=== PATIENT | female | born 1965 | race Two or more races ===

== ENCOUNTER 2018-03-07 08:26 | Emergency (ER) | payer OTHER ==
[2018-03-07 08:37] VITALS: BMI 28.9
--- NOTE | 2018-03-07 09:28 | PDOC ---
Attending Attestation - Resident Resident Name: Corey Deckery - ED Attending Attestation I have performed the following: I have examined & evaluated the patient, The case was reviewed & discussed with the resident, I agree w/resident's findings & plan, Exceptions are as noted <Noa Bishop - Last Filed: 03/07/18 13:24> - HPI HPI: 03/07/18 09:29 The patient is a 52 year old female, with a significant past medical history of gallstones(s/p cholecystectomy on 08/16/16), who presents to the emergency department with abdominal pain, nausea, vomiting, and constipation for approximately 2 days. The patient reports nausea and vomiting since Sunday, nonbloody and nonbilious. She reports associated abdominal pain and constipation , but denies any diarrhea, melena, or hematochezia. She endorses decreased appetite and chills, but denies any fever . She denies any chest pain or shortness of breath. She denies any dysuria, hematuria, frequency, or urgency. She denies any recent travel or sick contacts. The patient reports she was evaluated at [facility] 2 days ago, where she had a CT Abdomen and Pelvis, which revealed an enteritis. She denies any history of vertigo. Allergies: NKDA Past Surgical History: Hysterectomy(for menorrhagia), (x4), Cholecystectomy. Social History: Non smoker. No ETOH or recreational drug use. - Physicial Exam PE: 03/07/18 09:30 GENERAL: Awake, alert, and fully oriented, in no acute distress HEAD: No signs of trauma EYES: PERRLA, EOMI, sclera anicteric, conjunctiva clear ENT: +Dry mucosa. Auricles normal inspection, hearing grossly normal, nares patent. NECK: Normal ROM, supple, no lymphadenopathy, JVD, or masses LUNGS: Breath sounds equal, clear to auscultation bilaterally. No wheezes, and no crackles HEART: Regular rate and rhythm, normal S1 and S2, no murmurs, rubs or gallops ABDOMEN: +Non specific abdominal tenderness to palpation. Soft, normoactive bowel sounds. No guarding, no rebound. No masses EXTREMITIES: Normal range of motion, no edema. No clubbing or cyanosis. No cords, erythema, or tenderness. DP/PT pulses 2+ and symmetric. NEUROLOGICAL: Moves all extremities. Normal speech, normal gait SKIN: Warm, Dry, normal turgor, no rashes or lesions noted. - Medical Decision Making 03/07/18 09:30 Documentation prepared by Aleah Clinton, acting as director medical affairs for Noa Bishop MD. <Aleah Clinton - Last Filed: 03/07/18 14:22> Heart Score/ECG Review #1 ECG reviewed & interpreted by me at: 13:25 General ECG Interpretation: Sinus Rhythm, Normal Rate (68), Normal Intervals, No acute ischemic changes <Noa Bishop - Last Filed: 03/07/18 13:24> ED Treatment Course - LABORATORY CBC & Chemistry Diagram: 03/07/18 09:40 03/07/18 09:40 - ADDITIONAL ORDERS Additional order review: Laboratory Results 03/07/18 03/07/18 10:15 09:40 Sodium 140 Potassium 4.0 Chloride 108 H Carbon Dioxide 27 Anion Gap 5 L BUN 14 Creatinine 0.6 Creat Clearance w eGFR > 60 Random Glucose 111 H Calcium 8.8 Total Bilirubin 0.8 AST 27 ALT 34 Alkaline Phosphatase 94 Total Protein 7.5 Albumin 3.8 Urine Color Yellow Urine Appearance Slcloudy Urine pH 6.0 Ur Specific [place] 1.017 Urine Protein Negative Urine Glucose (UA) Negative Urine Ketones Negative Urine Blood Negative Urine Nitrite Negative Urine Bilirubin Negative Urine Urobilinogen Negative Ur Leukocyte Esterase Negative Urine HCG, Qual Negative 03/07/18 09:40 RBC 5.09 MCV 86.4 MCHC 33.7 RDW 13.1 MPV 7.4 L Neutrophils % 66.2 Lymphocytes % 25.3 D Monocytes % 6.6 Eosinophils % 1.3 D Basophils % 0.6 - RADIOLOGY Radiology Studies Ordered: 03/07/18 14:20 EXAM: XR Abdomen INTERPRETED BY: Dr. Ireland REVIEWED BY: Dr. Bishop IMPRESSION: Imaging reveals retained contrast in the appendix and colon with no sign of a gross obstructive process, free aur or pneumatosis. The bones and soft tissues are intact. Correlation recommended. There is no evidence of a recent CT scan at [facility] to account for the contrast in the colon and appendix. - Medications Given in the ED: ED Medications Discontinued Medications Generic Name Dose Route Start Last Admin Trade Name Freq PRN Reason Stop Dose Admin Sodium Chloride 1,000 mls @ 1,000 mls/hr 03/07/18 09:31 03/07/18 09:57 Normal Saline - IV 03/07/18 10:30 1,000 mls/hr ASDIR STA Administration Metoclopramide HCl 10 mg 03/07/18 10:26 03/07/18 10:45 Reglan Injection - IVPUSH 03/07/18 10:27 10 mg ONCE ONE Administration <Aleah Clinton - Last Filed: 03/07/18 14:22>
[2018-03-07] MEDS ORDERED: SODIUM CHLORIDE 1,000 ML IV STA (09:31)
--- NOTE | 2018-03-07 09:52 | PDOC ---
History of Present Illness - General Chief Complaint: Pain Stated Complaint: NAUSEA/VOMITING History Source: Patient Exam Limitations: No Limitations - History of Present Illness Initial Comments: 03/07/18 09:51 52F with pmh of cholecystectomy and hysterectomy presents to the ER for nausea, vomiting and abdominal pain since Sunday. The pain is diffuse and 8/10, non- radiating. Was seen at [facility] on March 05 for same symptoms although 08/14 at the time. Had a CT scan done which according to family showed evidence of "enteritis". Patient was treated with fluids and zofran and discharged on dicyclomine, pepcid and zofran with follow up with GI. States she hasn't moved her bowels in two days and ate very little. Called [facility]: CT abdomen with IV and PO contrast showed "patterns dilated jejunum loops indicating possible enteritis." 03/07/18 10:18 Past History - Past Medical History Allergies/Adverse Reactions: Allergies Allergy/AdvReac Type Severity Reaction Status Date / Time No Known Drug Allergies Allergy Verified 03/07/18 08:33 Home Medications: Ambulatory Orders Doxycycline Hyclate 100 mg PO BID 08/15/16 Oxycodone HCl/Acetaminophen [Percocet 5-325 mg Tablet] 1 - 2 tab PO Q6H #20 tab MDD 4 08/16/16 Amoxicillin/Potassium Clav [Augmentin 875-125 Tablet] 1 each PO BID #20 tablet 08/21/16 Docusate Sodium [Colace -] 100 mg PO TID #90 capsule 08/21/16 Anemia: No Asthma: No Cancer: No Cardiac Disorders: No CVA: No COPD: No CHF: No Dementia: No Diabetes: No GI Disorders: Yes Disorders: No HTN: Yes Hypercholesterolemia: No Liver Disease: No Seizures: No Thyroid Disease: No - Surgical History Abdominal Surgery: Yes (TUMMY TUCK) Appendectomy: No Cardiac Surgery: No Cholecystectomy: Yes Lung Surgery: No Neurologic Surgery: No Orthopedic Surgery: No - Immunization History Td Vaccination: No - Suicide/Smoking/Psychosocial Hx Smoking Status: No Smoking History: Never smoked Have you smoked in the past 12 months: No Number of Cigarettes Smoked Daily: 0 Cigars Per Day: 0 Information on smoking cessation initiated: No Hx Alcohol Use: No Drug/Substance Use Hx: No Substance Use Type: None Hx Substance Use Treatment: No Review of Systems - Review of Systems Able to Perform ROS?: Yes Is the patient limited Samoan proficient: No Constitutional: Yes: Loss of Appetite HEENTM: No: Symptoms Reported Respiratory: No: Symptoms reported Cardiac (ROS): No: Symptoms Reported ABD/GI: Yes: See HPI, Constipated, Nausea, Vomiting *Physical Exam - Vital Signs Last Vital Signs Temp Pulse Resp BP Pulse Ox 98.1 F 79 18 144/84 100 03/07/18 08:34 03/07/18 08:34 03/07/18 08:34 03/07/18 08:34 03/07/18 08:34 - Physical Exam General Appearance: Yes: Nourished, Appropriately Dressed. No: Apparent Distress HEENT: positive: EOMI, JOSEPH Neck: negative: Tender Respiratory/Chest: positive: Lungs Clear, Normal Breath Sounds. negative: Chest Tender, Respiratory Distress Cardiovascular: positive: Regular Rhythm, Regular Rate, S1, S2 Gastrointestinal/Abdominal: positive: Tender (diffuse, epigastice, periumbilical , subrapubic, RUQ), Flat, Soft, Decreased BS Extremity: positive: Normal Capillary Refill, Normal Inspection, Normal Range of Motion Neurologic: positive: Fully Oriented, Alert, Normal Mood/Affect, Normal Response ED Treatment Course - LABORATORY CBC & Chemistry Diagram: 03/07/18 09:40 03/07/18 09:40 Medical Decision Making - Medical Decision Making 03/07/18 10:23 52F with n/v and diffuse abdominal pain. Will send basic labs, KUB to investigate possible sbo. We deem not necessary to reexpose patient to radiations with a repeat CT abdomen since it was done 2 days ago. 03/07/18 13:21 Patient able to tolerate PO will, discharge with Gi follow up. 03/07/18 15:06 Patient's pain controlled with Gi cocktail. ok to d/c *DC/Admit/Observation/Transfer Diagnosis at time of Disposition: Abdominal pain - Discharge Dispostion Disposition: HOME Condition at time of disposition: Improved Admit: No - Referrals Referrals: Thor Covington [Primary Care Provider] - Frantz Cook MD [Staff Physician] - - Patient Instructions Printed Discharge Instructions: DI for Abdominal Pain-Adult Additional Instructions: Follow up with Dr. Cook, Manager Of Photography. Come back to the ER for any new, worsening or concerning symptoms. - Post Discharge Activity
[2018-03-07 10:02] LABS: BASO % 0.6 % (0-2.0); EOS % 1.3 % (0-4.5); HEMATOCRIT 43.9 % (32.4-45.2); HEMOGLOBIN 14.8 GM/dL (10.7-15.3); LYMPH % 25.3 % (8-40); MCH 29.1 pg (25.7-33.7); MCHC 33.7 g/dl (32.0-36.0); MEAN CELL VOLUME 86.4 fl (80-96); MEAN PLT VOLUME 7.4 fl (7.5-11.1); MONO % 6.6 % (3.8-10.2); NEUT % 66.2 % (42.8-82.8); PLATELET COUNT 310 K/MM3 (134-434); RBC 5.09 M/mm3 (3.60-5.2); RDW 13.1 % (11.6-15.6); WHITE BLOOD COUNT 5.1 K/mm3 (4.0-10.0)
[2018-03-07 10:25] LABS: HCG,QUALITATIVE URINE NEGATIVE
[2018-03-07] MEDS ORDERED: METOCLOPRAMIDE HCL INJECTION 10 MG/2 ML VIAL IVPUSH ONE (10:26)
[2018-03-07 10:29] LABS: ALBUMIN 3.8 g/dl (3.4-5.0); ANION GAP 5 (8-16); BILIRUBIN,TOTAL 0.8 mg/dL (0.2-1.0); BLOOD UREA NITROGEN 14 mg/dL (7-18); CALCIUM 8.8 mg/dL (8.5-10.1); CHLORIDE 108 mmol/L (98-107); CO2 27 mmol/L (21-32); CREATININE 0.6 mg/dL (0.55-1.02); GLUCOSE,RANDOM 111 mg/dL (74-106); SGOT/AST 27 U/L (15-37); SGPT/ALT 34 U/L (12-78); SODIUM 140 mmol/L (136-145); TOT PROT 7.5 g/dl (6.4-8.2)
[2018-03-07 10:30] LABS: ALK PHOS 94 U/L (45-117)
[2018-03-07 12:30] LABS: URINE APPEARANCE SLCLOUDY; URINE BILIRUBIN NEGATIVE (<2.0 mg/dL); URINE BLOOD NEGATIVE (NEGATIVE); URINE COLOR YELLOW; URINE GLUCOSE (UA) NEGATIVE (NEGATIVE); URINE KETONE NEGATIVE (NEGATIVE); URINE LEUK ESTERASE NEGATIVE (NEGATIVE); URINE NITRITE NEGATIVE (NEGATIVE); URINE PROTEIN NEGATIVE (NEGATIVE); URINE UROBILINOGEN NEGATIVE mg/dL (0.2-1.0)
[2018-03-07] MEDS ORDERED: MAG HYDROX/AL HYDROX/SIMETH 30 ML UNIT-DOSE CUP PO ONE (13:39)
[2018-03-07] MEDS ORDERED: LIDOCAINE VISCOUS 2% ORAL/TOP 20 ML UNIT-DOSE CUP MM ONE (13:39)
[2018-03-07] MEDS ORDERED: PANTOPRAZOLE 20 MG TABLET (FP) PO ONE (13:40)
[2018-03-07] MEDS ORDERED: PANTOPRAZOLE 40 MG TABLET (FP) ONE (14:21)
[2018-03-07] MEDS ORDERED: MAG HYDROX/AL HYDROX/SIMETH 30 ML UNIT-DOSE CUP ONE (14:21)
[2018-03-07] MEDS ORDERED: LIDOCAINE VISCOUS 2% ORAL/TOP 20 ML UNIT-DOSE CUP ONE (14:21)
[2018-03-07 15:21] VITALS: BP 138/83; PULSE 77; TEMP 98.2
--- NOTE | 2018-03-07 16:09 | EKG ---
Test Reason : Blood Pressure : / mmHG Vent. Rate : 068 BPM Atrial Rate : 068 BPM P-R Int : 160 ms QRS Dur : 086 ms QT Int : 412 ms P-R-T Axes : -14 -20 016 degrees QTc Int : 438 ms NORMAL SINUS RHYTHM MINIMAL VOLTAGE CRITERIA FOR LVH, MAY BE NORMAL VARIANT BORDERLINE ECG WHEN COMPARED WITH ECG OF 12-JUL-2010 16:57, NO SIGNIFICANT CHANGE WAS FOUND Confirmed by HIRAM HARVEY, JUAN ([id number]) on 03/07/2018 4:09:10 PM Referred By: Confirmed By:JUAN GANDHI MD
== END 2018-03-07 15:21 | disposition home or self-care (01) ==
LOC: JER 08:26
PROC: 3E033GC Introduction of Other Therapeutic Substance into Peripheral Vein, Percutaneous Approach (ICD-10-PCS; principal; 2018-03-07)
PROC: 3E0337Z Introduction of Electrolytic and Water Balance Substance into Peripheral Vein, Percutaneous Approach (ICD-10-PCS; 2018-03-07)
DX: R10.9 Unspecified abdominal pain (principal)
CPT/HCPCS: 36415; 74018-TC-FY; 80053; 81003; 84703; 85025; 93005; 93010; 99282-25; J7030

== ENCOUNTER 2022-08-30 04:15 | Day surgery (SDC) | payer OTHER ==
[2022-08-28 12:07] VITALS: BMI 27.8
[2022-08-30] MEDS ORDERED: MIDAZOLAM HCL 2 MG/2 ML SINGLE DOSE VIAL ONE (07:21)
[2022-08-30] MEDS ORDERED: PROPOFOL 40 ML ONE (07:21)
[2022-08-30] MEDS ORDERED: LIDOCAINE HCL 2% 100 MG/5 ML DISP.SYRIN ONE (07:21)
[2022-08-30] MEDS ORDERED: LIDOCAINE 1%/EPI 1:100000 (20 ML MULTI DOSE VIAL) ONE (07:22)
[2022-08-30] MEDS ORDERED: SUCCINYLCHOLINE CHLORIDE 200 MG/10 ML SYRINGE ONE (07:22)
[2022-08-30] MEDS ORDERED: BUPIVACAINE HCL/PF 0.5% (5MG/ML) 10 ML VIAL ONE (07:22)
[2022-08-30] MEDS ORDERED: LIDOCAINE 1%/EPI 1:100000 (50 ML MULTI DOSE VIAL) INF ONE (07:52)
[2022-08-30] MEDS ORDERED: BENZOIN/ALOE VERA/STORAX/TOLU 58 ML BOTTLE ONE (08:05)
[2022-08-30] MEDS ORDERED: BENZOIN/ALOE VERA/STORAX/TOLU 58 ML BOTTLE TP ONE (08:09)
[2022-08-30] MEDS ORDERED: ONDANSETRON 4 MG/2 ML VIAL IVPUSH PRN (08:42)
[2022-08-30] MEDS ORDERED: LACTATED RINGERS SOLUTION 1,000 ML IV SCH (08:45)
[2022-08-30] MEDS ORDERED: ACETAMINOPHEN 325 MG TABLET (FP) PO PRN (08:51)
[2022-08-30] MEDS ORDERED: oxyCODONE HCL 5 MG TABLET PO PRN (08:51)
[2022-08-30 11:54] VITALS: RESP 20; TEMP 97.4
[2022-08-30 11:57] VITALS: BP 130/78; PULSE 67
== END 2022-08-30 11:45 | disposition home or self-care (01) ==
LOC: JASU-SURG 04:15
PROVIDERS: ATTEND Otolaryngology
PROC: 0JB40ZZ Excision of Right Neck Subcutaneous Tissue and Fascia, Open Approach (ICD-10-PCS; principal; 2022-08-30 07:30)
DX: L72.3 Sebaceous cyst (principal); L72.0 Epidermal cyst
CPT/HCPCS: 88305-TC; 94760

== ENCOUNTER 2025-04-03 10:08 | Emergency (ER) | payer OTHER ==
[2025-04-03 10:17] VITALS: BP 197/84; PULSE 74; RESP 19; TEMP 97.8; BMI 30.6
[2025-04-03] MEDS ORDERED: LIDOCAINE 4% PATCH TP ONE (11:15)
[2025-04-03] MEDS ORDERED: KETOROLAC TROMETHAMINE 15 MG/ML VIAL ONE (11:15)
[2025-04-03] MEDS ORDERED: ACETAMINOPHEN 500 MG TABLET (FP) ONE (11:15)
[2025-04-03] MEDS ORDERED: BACLOFEN 10 MG TABLET (FP) ONE (11:19)
[2025-04-03] MEDS: LIDOCAINE 5% TOPICAL PATCH TP ONE (11:34)
[2025-04-03] MEDS: KETOROLAC TROMETHAMINE 30 MG/1 ML VIAL IM ONE (11:34)
[2025-04-03] MEDS: ACETAMINOPHEN 500 MG TABLET (FP) PO ONE (11:34)
[2025-04-03] MEDS: BACLOFEN 10 MG TABLET (FP) PO ONE (11:34)
[2025-04-03] MEDS ORDERED: LIDOCAINE PATCH REMOVAL MC ONE (22:00)
== END 2025-04-03 12:58 | disposition home or self-care (01) ==
LOC: JERFT 10:08
PROC: 3E0233Z Introduction of Anti-inflammatory into Muscle, Percutaneous Approach (ICD-10-PCS; principal; 2025-04-03)
DX: M54.42 Lumbago with sciatica, left side (principal); I10 Essential (primary) hypertension
CPT/HCPCS: 99284-25; J0475